=== PATIENT | male | born 1995 | race Caucasian/White ===

== ENCOUNTER 2021-06-28 07:35 | Emergency (ER) | payer OTHER ==
[2021-06-28 07:45] VITALS: BP 129/77
--- NOTE | 2021-06-28 07:53 | ED Physician Documentation ---
PD HPI OPHTHO - Stated complaint Stated Complaint: PX IN R EYE - Chief complaint Chief Complaint: Heent - History obtained from History obtained from: Patient - History of Present Illness Timing - onset: Yesterday Timing - duration: Days (3/4) Timing - details: Abrupt onset, Still present Location: Right Associated symptoms: Redness, Swelling, Tearing Contributing factors: FB (he was working with wood and metal, had been drilling wearing glasses. Did not have FB then but felt something go in eye when taking glasses off. He rinsed eye. Still feels FB sensation and pain today.), Work related. No: Exposed to conjunctivitis Similar symptoms before: Has not had sx before Recently seen: Not recently seen Review of Systems Constitutional: denies: Fever, Chills Eyes: reports: Irritation. denies: Loss of vision, Photophobia, Discharge (just watery and some crusted this morning.) Nose: denies: Rhinorrhea / runny nose, Congestion Throat: denies: Sore throat Respiratory: denies: Cough PD PAST MEDICAL HISTORY - Past Medical History Cardiovascular: None Respiratory: None Endocrine/Autoimmune: None - Present Medications Home Medications: Ambulatory Orders Medication Instructions Recorded Confirmed Erythromycin Base [Erythromycin 1 applic OP QID #3.5 gm 06/28/21 Ophthalmic Ointment] - Allergies Allergies/Adverse Reactions: Allergies Allergy/AdvReac Type Severity Reaction Status Date / Time Penicillins Allergy Hives Verified 06/28/21 07:45 PD ED PE NORMAL - Vitals Vital signs reviewed: Yes - General General: Alert and oriented X 3, No acute distress, Well developed/nourished - HEENT HEENT: PERRL, EOMI (no consensual light sensitivity. Mild direct. Some conjunctival hyeremia on right. No discharge.) PD ED PE EXPANDED - Eyes Eyes: Right eye, Corneal abrasion, Fluorescein uptake (about the 8 oclock position. not in visual axis. ), Anterior chambers clear, Normal fundi. No: Corneal FB, Corneal ulcer Results - Vitals Vitals: Vital Signs - 24 hr 06/28/21 07:42 Temperature 36.5 C Heart Rate 85 Respiratory 15 Rate Blood Pressure 129/77 O2 Saturation 99 Oxygen O2 Source Room air Departure - Departure Disposition: 01 Home, Self Care Clinical Impression: Corneal abrasion Qualifiers: Encounter type: initial encounter Laterality: right Qualified Code(s): S05.01XA - Injury of conjunctiva and corneal abrasion without foreign body, right eye, initial encounter Condition: Stable Record reviewed to determine appropriate education?: Yes Instructions: ED Eye Injury Corneal Abrasion Prescriptions: Erythromycin Base [Erythromycin Ophthalmic Ointment] 1 applic OP QID #3.5 gm Comments: Rest your eye today and avoid further foreign bodies and dust etc. Less eye motion will feel more comfortable so home and rest. You should feel better into tomorrow. Use some Tylenol or ibuprofen if needed for pains. Erythromycin eye ointment will help with any early infection and also the ointment component will provide some codeine of the eye surface so there is less irritation with eyelid movement. Forms: Activity restrictions Discharge Date/Time: 06/28/21 08:30
[2021-06-28] MEDS ORDERED: ERYTHROMYCIN OPHTH OINT 1 GM TUBE RIGHTEYE STA (08:12)
[2021-06-28] MEDS ORDERED: IBUPROFEN 600 MG TABLET PO STA (08:12)
== END 2021-06-28 08:30 | disposition home or self-care (01) ==
LOC: ED 07:35
DX: S05.01XA Injury of conjunctiva and corneal abrasion without foreign body, right eye, initial encounter (principal); W31.89XA Contact with other specified machinery, initial encounter; Y99.0 Civilian activity done for income or pay
CPT/HCPCS: 99282; 99283; A9270; J3490